=== PATIENT | male | born 1955 | race Caucasian/White ===

== ENCOUNTER 2019-03-30 15:51 | Emergency (ER) | payer OTHER, MEDICARE ==
[2019-03-30] MEDS ORDERED: ASPIRIN 81 MG TABLET, CHEWABLE PO ONE (16:38)
--- NOTE | 2019-03-30 16:39 | ER Document Report ---
ED Medical Screen (RME) - General Chief Complaint: Chest Pain Stated Complaint: CHEST PAIN Time Seen by Provider: 03/30/19 16:34 Primary Care Provider: FORTUNATO DOWLING MD [Primary Care Provider] - Follow up as needed Mode of Arrival: Ambulatory Information source: Patient Notes: 64-year-old male presented to ED for chest pain since 1 PM this afternoon. He states is in the center of his chest going down his left arm. Denies any shortness of breath dizziness nausea or vomiting or diaphoresis. He states he also had similar pain on Saturday but refused to come to the emergency room. But states that his blood pressure was 212/98 at that time but he sat refused to come to the emergency room. He has a history of a stroke on the right sided weakness blood pressure and cholesterol. He has had left eye surgery due to still being in his eye. He is a former smoker but has not smoked in many years. He does not drink or do any drugs does not work due to the stroke and lives with his . I have greeted and performed a rapid initial assessment of this patient. A comprehensive ED assessment and evaluation of the patient, analysis of test results and completion of medical decision making process will be conducted by an additional ED providers. Dictation of this chart was performed using voice recognition software; therefore, there may be some unintended grammatical errors. TRAVEL OUTSIDE OF THE [place] IN LAST 30 DAYS: No - Related Data Allergies/Adverse Reactions: No Known Allergies Allergy (Verified 03/30/19 15:52) Past Medical History - Immunizations Hx Diphtheria, Pertussis, Tetanus Vaccination: Yes Physical Exam - Vital signs Vitals: Temp Pulse BP Pulse Ox 99.3 F 85 150/64 H 94 03/30/19 16:05 03/30/19 16:05 03/30/19 16:05 03/30/19 16:05 Course - Vital Signs Vital signs: Temp Pulse Resp BP Pulse Ox 99.3 F 85 150/64 H 94 03/30/19 16:05 03/30/19 16:05 03/30/19 16:05 03/30/19 16:05 Doctor's Discharge - Discharge Referrals: FORTUNATO DOWLING MD [Primary Care Provider] - Follow up as needed
--- NOTE | 2019-03-30 17:05 | RADIOLOGY REPORT (SQ) ---
EXAM DESCRIPTION: CHEST 2 VIEWS COMPLETED DATE/TIME: 03/30/2019 4:56 pm REASON FOR STUDY: chest pain since 1300 today also saturday COMPARISON: 10/02/2015. EXAM PARAMETERS: NUMBER OF VIEWS: two views TECHNIQUE: Digital Frontal and Lateral radiographic views of the chest acquired. RADIATION DOSE: NA LIMITATIONS: none FINDINGS: LUNGS AND PLEURA: No opacities, masses or pneumothorax. No pleural effusion. MEDIASTINUM AND HILAR STRUCTURES: No masses or contour abnormalities. HEART AND VASCULAR STRUCTURES: Heart normal size. No evidence for failure. BONES: No acute findings. HARDWARE: None in the chest. OTHER: No other significant finding. IMPRESSION: NO ACUTE RADIOGRAPHIC FINDING IN THE CHEST. TECHNICAL DOCUMENTATION: JOB ID: [id number] [employer]- All Rights Reserved Reading location - IP/workstation name: [email or web address]
[2019-03-30 17:36] LABS: ABSOLUTE EOSINOPHILS # (AUTO) 0.5 10^3/uL (0.0-0.6); ABSOLUTE LYMPHOCYTES (AUTO) 2.1 10^3/uL (0.5-4.7); ABSOLUTE MONOCYTES (AUTO) 0.9 10^3/uL (0.1-1.4); ABSOLUTE NEUT (AUTO) 5.3 10^3/uL (1.7-8.2); BASOPHILS % (AUTO) 0.5 % (0-2); EOSINOPHILS % (AUTO) 5.6 % (0-6); HEMATOCRIT 43.3 % (37.9-51.0); HEMOGLOBIN 14.8 g/dL (13.5-17.0); LYMPHOCYTES % (AUTO) 23.6 % (13-45); MEAN CORPUSCULAR HEMOGLOBIN 29.7 pg (27.0-33.4); MEAN CORPUSCULAR HGB CONC 34.1 g/dL (32.0-36.0); MEAN CORPUSCULAR VOLUME 87 fl (80-97); MONOCYTES % (AUTO) 10.2 % (3-13); PLATELET COUNT 172 10^3/uL (150-450); RED BLOOD COUNT 4.97 10^6/uL (4.35-5.55); RED CELL DISTRIBUTION WIDTH 13.6 % (11.5-14.0); SEGMENTED NEUTROPHILS % (AUTO) 60.1 % (42-78); TOTAL CELLS COUNTED % (AUTO) 100 %; WHITE BLOOD COUNT 8.8 10^3/uL (4.0-10.5)
[2019-03-30 17:57] LABS: APPEARANCE,URINE SLIGHTLY-CLOUDY; BILIRUBIN,URINE NEGATIVE (NEGATIVE); COLOR,URINE YELLOW; GLUCOSE, URINE NEGATIVE (NEGATIVE); KETONES,URINE NEGATIVE (NEGATIVE); LEUKOCYTE ESTERASE,URINE NEGATIVE (NEGATIVE); NITRITE,URINE NEGATIVE (NEGATIVE); PROTEIN,URINE NEGATIVE (NEGATIVE); URINE SPECIFIC GRAVITY 1.019; UROBILINOGEN,URINE NEGATIVE mg/dL (<2.0)
[2019-03-30 17:58] LABS: ALANINE AMINOTRANSFERASE 40 U/L (21-72); ALBUMIN 4.4 g/dL (3.5-5.0); ALKALINE PHOSPHATASE 96 U/L (38-126); ANION GAP 10 (5-19); ASPARTATE AMINO TRANSFERASE 23 U/L (17-59); BILIRUBIN,DIRECT 0.2 mg/dL (0.0-0.4); BILIRUBIN,TOTAL 0.5 mg/dL (0.2-1.3); BLOOD UREA NITROGEN 23 mg/dL (7-20); CALCIUM 9.8 mg/dL (8.4-10.2); CARBON DIOXIDE 28 mmol/L (22-30); CHLORIDE 103 mmol/L (98-107); GLUCOSE 99 mg/dL (75-110); LIPASE 119.4 U/L (23-300); POTASSIUM 4.4 mmol/L (3.6-5.0); SODIUM 140.9 mmol/L (137-145); TOTAL PROTEIN 7.5 g/dL (6.3-8.2)
[2019-03-30 18:09] LABS: CREATINE KINASE MB 2.04 ng/mL (<4.55); TROPONIN I 0.014 ng/mL
--- NOTE | 2019-03-30 18:57 | EKG REPORT ---
SEVERITY:- ABNORMAL ECG - SINUS RHYTHM ABNORMAL T, CONSIDER ISCHEMIA, LATERAL LEADS : Confirmed by: Timothy Giordano MD 30-Mar-2019 18:55:35
--- NOTE | 2019-03-30 21:50 | ER Document Report ---
ED General - General Chief Complaint: Chest Pain Stated Complaint: CHEST PAIN Time Seen by Provider: 03/30/19 16:34 Primary Care Provider: FORTUNATO DOWLING MD [NO LOCAL MD] - Follow up tomorrow Mode of Arrival: Ambulatory Notes: Patient is a 64-year-old male with a past medical history of prior CVA, carotid artery stenosis, coronary artery disease status post 3 stents placed in February 2018, hypertension, presents with an episode of left-sided chest pain radiating into his left upper extremity. The patient reports that his symptoms started approximately 1 PM and spontaneously terminated at 7 PM. When they were present he regarded them as being a moderate to severe, pressure like sensation that was constant. It did resolve spontaneously. No obvious trigger or exacerbating factor. Denies similar symptoms in the past. Has not seen his whipped topping mixer or primary care doctor regarding today's concerns. Denies associated nausea, vomiting or shortness of breath. At the time of my evaluation denies any ongoing symptoms. TRAVEL OUTSIDE OF THE [place] IN LAST 30 DAYS: No - Related Data Allergies/Adverse Reactions: No Known Allergies Allergy (Verified 03/30/19 15:52) Past Medical History - General Information source: Patient - Social History Smoking Status: Former Smoker Chew tobacco use (# tins/day): No Frequency of alcohol use: None Drug Abuse: None Lives with: Spouse/Significant other Family History: Reviewed & Not Pertinent Patient has suicidal ideation: No Patient has homicidal ideation: No - Past Medical History Cardiac Medical History: Reports: Hx Hypercholesterolemia Renal/ Medical History: Reports: Hx Kidney Stones. Denies: Hx Peritoneal Dialysis Past Surgical History: Reports: Hx Cardiac Catheterization - 3 stents - Immunizations Hx Diphtheria, Pertussis, Tetanus Vaccination: Yes Review of Systems - Review of Systems Notes: Constitutional: Negative for fever. HENT: Negative for sore throat. Eyes: Negative for visual changes. Cardiovascular: Positive for chest pain. Respiratory: Negative for shortness of breath. Gastrointestinal: Negative for abdominal pain, vomiting or diarrhea. Genitourinary: Negative for dysuria. Musculoskeletal: Negative for back pain. Skin: Negative for rash. Neurological: Negative for headaches, weakness or numbness. 10 point ROS negative except as marked above and in HPI. Physical Exam - Vital signs Vitals: Temp Pulse BP Pulse Ox 99.3 F 85 150/64 H 94 03/30/19 16:05 03/30/19 16:05 03/30/19 16:05 03/30/19 16:05 Interpretation: Hypertensive Notes: PHYSICAL EXAMINATION: GENERAL: Well-appearing, well-nourished and in no acute distress. HEAD: Atraumatic, normocephalic. EYES: Pupils equal round and reactive to light, extraocular movements intact, sclera anicteric, conjunctiva are normal. ENT: nares patent, oropharynx clear without exudates. Moist mucous membranes. NECK: Normal range of motion, supple without lymphadenopathy LUNGS: Breath sounds clear to auscultation bilaterally and equal. No wheezes rales or rhonchi. HEART: Regular rate and rhythm without murmurs ABDOMEN: Soft, nontender, normoactive bowel sounds. No guarding, no rebound. No masses appreciated. EXTREMITIES: Normal range of motion, no pitting or edema. No cyanosis. NEUROLOGICAL: Mild expressive aphasia. Baseline right upper extremity weakness. PSYCH: Normal mood, normal affect. SKIN: Warm, Dry, normal turgor, no rashes or lesions noted. Course - Re-evaluation Re-evalutation: 03/30/19 21:48 Patient presents with an episode of chest pain lasting approximately 6 hours sta rting at 1 PM and resolving at 7 PM of left-sided chest pain radiating to the left upper extremity. The patient has very worrisome past medical history including 3 stent placement in February 2018 as well as 1 vessel that apparently required a stent but was not able to be intervened upon, history of carotid artery stenosis, and prior CVA. The patient does not have any current chest pain. His initial EKG does not show any ischemic changes and his initial troponin is negative. The patient has not had any stress test or cath since his last catheterization approximate 1 year ago. I have advised the patient that although his EKG is not different than the last time he was here in 2014 with subtle T wave inversions in the lateral leads and that his troponin is normal, given his history and elevated heart score of 5 given his risk factors, age, history and EKG I would recommend hospitalization for inpatient stress testing and possible transfer thereafter for cardiac catheterization. 03/30/19 22:48 The patient has had an elevation of his troponin into an indeterminate range of 0.041. I have advised the patient that I am very concerned that he had an ACS event and could be continuing to have ongoing ischemia. I did advise hospitalization for stress testing and ongoing cardiac marker monitoring. The patient did agree to transfer to [facility] as a patient based request. I contacted [facility] and requested transfer on the patient's behalf and they declined stating that due to capacity issues they cannot currently accept family or patient requested transfers. I did discuss this with the family and explained that that we certainly can keep the patient here and do a stress test or I could transfer them to an alternative facility of their choice. I alternatively offered to continue to keep the patient here in the emergency department and recheck his troponin three hours from now and see if it continues to escalate which would then mandate a medical necessity to transfer to [facility]. The patient and his have declined these options stating they would like to go home. He and his completely understand that I could be missing a critical occlusion, and cannot definitively exclude any form of ACS at this time. He understands that he could go home he could have an ACS event which could result in worsening cardiac function or even . Patient has capacity, he and his are in agreement with this approach. They plan to follow-up with her whipped topping mixer on Saturday. I have strongly advised that he should return to the emergency department immediately at any time if he would like to complete the treatment plan or develop any new symptoms. He continues to be chest pain-free. - Vital Signs Vital signs: Temp Pulse Resp BP Pulse Ox 99.3 F 85 13 163/79 H 98 03/30/19 16:05 03/30/19 16:05 03/30/19 23:02 03/30/19 23:02 03/30/19 23:02 - Laboratory Result Diagrams: 03/30/19 17:15 03/30/19 17:15 Laboratory results interpreted by me: 03/30/19 03/30/19 17:15 17:15 BUN 23 H Urine Ascorbic Acid 40 H - Diagnostic Test Radiology reviewed: Image reviewed, Reports reviewed Radiology results interpreted by me: 03/30/19 21:51 Chest x-ray: No acute infiltrate or pneumothorax - EKG Interpretation by Me Additional EKG results interpreted by me: 03/30/19 21:51 Sinus rhythm, rate 86. No ST elevations or depressions. The lateral and inferior leads. Unchanged from previous. QTC is 444. Discharge - Discharge Clinical Impression: History of coronary artery disease Chest pain Qualifiers: Chest pain type: unspecified Qualified Code(s): R07.9 - Chest pain, unspecified Condition: Serious Disposition: HOME, SELF-CARE Additional Instructions: You are going home today at your request. I have advised that you remain in the hospital for inpatient stress testing for transfer to an alternative facility of your choice. Unfortunately we were not able to transfer you to [facility] due to them being at capacity. As I discussed with you at length, I am concerned about your elevated heart markers as well as your history. I am concerned that you could be having a type of heart attack. You would like to go home despite these recommendations and have stated understanding that we could be missing a serious diagnosis such as ongoing heart attack. Please return to the emergency department anytime if you would like to complete your evaluation. Please also return if you develop recurrent chest pain, shortness of breath, vomiting, pass out, or have any other symptoms that are worrisome to you. Referrals: FORTUNATO DOWLING MD [NO LOCAL MD] - Follow up tomorrow
[2019-03-30 23:04] VITALS: BP 163/79
== END 2019-03-30 23:17 | disposition home or self-care (01) ==
LOC: ER 15:51
DX: R07.9 Chest pain, unspecified (principal); I10 Essential (primary) hypertension; I25.10 Atherosclerotic heart disease of native coronary artery without angina pectoris; Z95.5 Presence of coronary angioplasty implant and graft; Z87.891 Personal history of nicotine dependence; R47.01 Aphasia; R53.1 Weakness; R74.8 Abnormal levels of other serum enzymes
CPT/HCPCS: 36415; 71046; 80053; 81001; 82553; 83690; 84484; 85025; 93005; 93010; 99285